=== PATIENT | female | born 1990 | race African-American/Black ===

== ENCOUNTER 2018-08-17 14:42 | Emergency (ER) | payer MEDICAID, OTHER ==
[~2018-08-17] VITALS: Ht 165.1 cm; Wt 118.0 kg
[2018-08-17 16:11] VITALS: BP 125/80
== END 2018-08-17 16:13 | disposition home or self-care (01) ==
LOC: ER 14:42
DX: N61.1 Abscess of the breast and nipple (principal)
CPT/HCPCS: 99282